=== PATIENT | female | born 1955 | race Caucasian/White ===

== ENCOUNTER → 2021-03-10 | Day surgery (SDC) | payer OTHER ==
[~2021-03-10] VITALS: Ht 170.2 cm; Wt 68.0 kg
[~2021-03-10] MED LIST: ASA81BEC PO; AZITHROMYCIN250 MG PO; CANDESARTAN CIL16 MG PO; N-ACETYL-L-CYS600 MG PO; ROSUVASTATIN CA10 MG PO; TRELEGY ELLIPT1 EACH INH; VENTOLIN HFA INH8 GM INH
--- NOTE | ~2021-03-10 | O ---
[facility] [place] [address] OPERATIVE REPORT Name: JOHNNIE CELAYA Room #: REG [facility].#: [id number] Admission: 03/10/21 Attend Phys: Cydney Choudhury, Discharge: Date of : 55 Report #: [id number] THIS REPORT FOR: cc: Delores Pérez MD, Jennifer L MD Deardorff,Cydney Pillai MD ~ DATE OF SERVICE: 03/10/2021 PREOPERATIVE DIAGNOSES: 1. Right thumb carpometacarpal arthritis. 2. Right carpal tunnel syndrome. POSTOPERATIVE DIAGNOSES: 1. Right thumb carpometacarpal arthritis. 2. Right scaphotrapeziotrapezoid arthritis. 3. Right carpal tunnel syndrome. PROCEDURES PERFORMED: 1. Right thumb carpometacarpal arthroplasty, LRTI procedure. 2. Right proximal trapezoid excision with interposition arthroplasty. 3. Right endoscopic carpal tunnel release. SURGEON: Cydney Choudhury MD. TYPE OF ANESTHESIA: General mask anesthesia. ESTIMATED BLOOD LOSS: Minimal. TOURNIQUET TIME: Approximately 64 minutes. COMPLICATIONS: None. CONDITION: Stable. DISPOSITION: To the recovery room. INDICATIONS: The patient is a 65-year-old female with the above-mentioned diagnosis. She elects for operative treatment. The risks, benefits, alternatives and complications were discussed including but not limited to infection, damage to vessels, nerves, incomplete relief or worsening of any symptoms. Informed consent was obtained, the correct extremity was identified and labeled myself after verbal confirmation of the patient as well as visual confirmation and signed informed consent. DESCRIPTION OF PROCEDURE: The patient was brought back to the operating room and placed in the supine position. She received preoperative antibiotics. [address] [address] OPERATIVE REPORT Name: JOHNNIE CELAYA Room #: REG [facility] M..#: [id number] Admission: 03/10/21 Attend Phys: Cydney Choudhury, Discharge: Date of : 55 Report #: [id number] Tourniquet was placed over padding. The patient's right lower extremity was sterilely prepped and draped in the usual fashion. Final timeout was taken to verify correct patient, operative procedure, operative site, all concurred. The arm was elevated, exsanguinated and the tourniquet inflated. Next, first attention was placed to the carpal tunnel. This procedure was done with a ____. Next, a transverse incision was made a few millimeters proximal to distal wrist crease in line with the ulnar border where the palmaris longus tendon would typically be located. Dissection was carried down through subcutaneous tissue with tenotomy scissors. The antebrachial fascia was identified and incised. It was then incised for a few millimeters proximal. Next, an oblique incision was made at the distal end of the carpal tunnel. Dissection was carried down through subcutaneous tissue with tenotomy scissors. The fascia was carefully incised. Next, a [place] elevator was placed through the carpal tunnel and any synovial tissue was elevated off the undersurface of the transverse carpal ligament. Next, a blunt trocar cannula was inserted with the wrist in maximal extension and digital compression distally. Blunt trocar was removed. The camera was inserted and the nice transverse fibers of the undersurface of the transverse carpal ligament were seen throughout the entire length. A hook plate was brought in distally and the transverse carpal ligament was transected from the antebrachial fascia of the forearm all the way through the fat in the palm. The instrumentation was then removed. Each wound was explored. The release was all the way from the antebrachial fascia of the forearm all the way through the fat in the palm. The nerve looked to be in excellent condition. A [place] device was then placed through the carpal tunnel and no remnants of the transverse carpal ligament remained. The wounds were thoroughly irrigated. Skin was closed with 4-0 nylon suture. Next, attention was placed to the thumb. A modified Browning approach was done to the thumb. Dissection was carried down through subcutaneous tissue with tenotomy scissors. The thenars were elevated off the capsule. The capsule was identified and incised. There was a full thickness loss of cartilage at the CMC joint. The trapezium was then excised in its entirety with the exception of the volar most portion, which was excised at a later point during the case. The distal pole of the scaphoid had a full-thickness cartilage loss. ____, there was a very large, approximately 6 x 3 mm loose body between the thumb and index metacarpal bases that was excised. Extensive examination was undertaken to search for any other loose bodies, none were found. Next in the proximal portion of the Browning incision, the FCR tendon was identified. A mosquito hemostat was placed beneath it. Two 1 cm transverse incisions were made at 5 cm intervals proximal to the wrist along the course of the FCR tendon. In each, dissection was carried down through subcutaneous tissue with tenotomy scissors. In each, the FCR tendon was identified and its identity confirmed based on traction and the appearance. In each, a mosquito hemostat was placed beneath it. The proximal portion of the FCR was then transected and taken all the way out into the trapezial space and mobilized all the way to its insertion on the index metacarpal. It was then split into two. At this point, the remainder of the trapezium was excised. Next, [facility] [address] [place] [address] OPERATIVE REPORT Name: JOHNNIE CELAYA Room #: REG [facility].#: [id number] Admission: 03/10/21 Attend Phys: Cydney Choudhury, Discharge: Date of : 55 Report #: [id number] retractor was placed around the trapezoid. The scaphotrapezoid joint was found to have full thickness loss of cartilage and so the proximal 4 mm of the trapezoid was excised. Next, the area was thoroughly irrigated. Next, a [facility] retractor was placed around the ulnar side of the metacarpal and a 2.5 and 3.5 mm drill bit was used to create a hole from dorsal distal to volar proximal. A looped 0 Prolene suture was placed in the metacarpal and this was used as a loop to pull one-half of the FCR through the metacarpal. The thumb metacarpal was positioned in line with the index metacarpal and adducted. That half of the FCR was sutured to the periosteum. It was well ____ through it into the trapezial space through itself, pulled back out and sutured to itself as well as the periosteum with 4-0 Ethibond suture. Fluoroscopy was brought in, which showed good position of the thumb metacarpal in relation to the index. There was no impingement on axial load and there were no significant bony fragments remained. The wound was then thoroughly irrigated. Approximately, 3 cm segment of the FCR was placed into the scaphotrapezoid space as an interposition arthroplasty. The other half of the FCR was sutured into the trapezial space using 4-0 Vicryl suture and a watertight capsular closure was performed with 4-0 Ethibond suture. The skin was closed with 4-0 nylon suture. Subcutaneous tissue was infiltrated with approximately 8 mL of 0.25% Marcaine in divided doses. The wounds were dressed with Adaptic and sterile gauze. She was placed in a bulky dressing and a thumb spica splint. All fingers were pink with brisk capillary refill at the conclusion of case after deflation of tourniquet. All sponge and needle counts were correct. The patient transferred to postoperative room in stable condition. By: 1641 2033 Cydney Choudhury MD /nt
[2021-03-10 14:15] VITALS: BP 160/70
--- NOTE | 2021-03-10 16:51 | EKG ---
[place] [address] [facility] [place] [address] ELECTROCARDIOGRAM REPORT Name: BELIAJOHNNIE ARNOLDNE Room #: REG [facility]#: [id number] Admission: 03/10/21 Attend Phys: Cydney Choudhury, Discharge: Date of : 55 Report #: [id number] [facility] Test Date: 2021-03-10 Test Time: 13:59:51 Pat Name: JOHNNIE CELAYA Department: Room: Gender: F Farm Manager: HEBERT : 1955 Requested By: Cydney Choudhury Order Number: [id number] MD: Abraham Medina Measurements Intervals [place] Rate: 68 P: 103 IA: 196 QRS: 86 QRSD: 111 T: 47 QT: 438 QTc: 466 Interpretive Statements Sinus rhythm Borderline right axis deviation Minimal ST depression, inferior leads No previous ECG available for comparison Electronically Signed On 03-10-2021 16:51:19 CDT by Abraham Medina [email or web address] <ELECTRONICALLY SIGNED> By: Abraham Medina MD, [facility] 03/10/21 1651 [id number] Abraham Medina MD, FACC /EPI
[2021-03-10 17:35] VITALS: BP 160/70
== END | disposition home or self-care (01) ==
LOC: OR 13:27
PROVIDERS: ATTEND Orthopaedic Surgery Hand Surgery
DX: M18.11 Unilateral primary osteoarthritis of first carpometacarpal joint, right hand (principal); G56.01 Carpal tunnel syndrome, right upper limb; I10 Essential (primary) hypertension; E78.5 Hyperlipidemia, unspecified; J43.9 Emphysema, unspecified; Z98.890 Other specified postprocedural states; Z79.899 Other long term (current) drug therapy; Z87.891 Personal history of nicotine dependence; Z88.6 Allergy status to analgesic agent
CPT/HCPCS: 50010; 50101; 50386; 56526; 56969; 57006; 57092; 62110; 62900; 70005